=== PATIENT | female | born 1980 | race Caucasian/White ===

== ENCOUNTER 2022-04-24 13:01 | Emergency (ER) | payer OTHER, SELFPAY ==
[2022-04-24 13:01] VITALS: BP 144/90; PULSE 89; RESP 15; TEMP 36.4; O2SAT 97; BMI 54.7
--- NOTE | 2022-04-24 13:19 | DI.CT.S_ITS ---
PROCEDURE: CT FACIAL BONES WO CON INDICATIONS: Fall/jaw pain TECHNIQUE: Noncontrast 2.5 mm thick axial images acquired from the mandible through the frontal sinuses, with coronal and sagittal reformatting. For radiation dose reduction, the following was used: automated exposure control, adjustment of mA and/or kV according to patient size. COMPARISON: None. FINDINGS: Image quality: Excellent. Bones and teeth: Orbital castaneda are intact. Sinus castaneda show no fracture or deformity. Nasal bones and septum are intact. Visualized portions of the mandible demonstrate no fractures or subluxation. Zygomatic arches are intact. Pterygoid plates are intact. Visualized portions of the skull base and auditory canals are intact. Sinuses: Right maxillary sinus air-fluid level mucosal debris. Soft tissues: No edema, masses, or fluid collections. No enlarged lymph nodes. No soft tissue lacerations or debris. Mild soft tissue swelling/edema noted over the chin Vascular: Visualized vascular structures appear normal in the absence of contrast. Bony vascular foramina and canals are intact. IMPRESSION: No evidence of mandibular or facial bone fracture. Soft tissue swelling without fracture or foreign body Approved by: Noman Pino M.D. on 04/24/2022 at 12:57
--- NOTE | 2022-04-24 13:19 | ED_ITS ---
HPI - Fall General Chief Complaint: Fall Stated Complaint: fell and hit chin on pavement Time Seen by Provider: 04/24/22 13:12 Source: patient Mode of arrival: Ambulatory History of Present Illness HPI Narrative: Patient here with mother. Complains of jaw pain/chin pain, she fell because her son walked in front of her and caused her to trip and fall on the sidewalk. No loss of consciousness. Patient not on any blood thinners. Denies any other injuries. Has abrasion to the chin. Has difficulty opening and closing her jaw. Denies , does not want a test Patient is up-to-date with tetanus shot Related Data Home Medications Medication Instructions Recorded Confirmed naproxen sodium 220 mg tablet 220 mg PO PRN ##0 04/30/13 (Aleve) Allergies Allergy/AdvReac Type Severity Reaction Status Date / Time acetaminophen [From Vicodin] Allergy Verified 04/24/22 13:08 guaifenesin Allergy Verified 04/24/22 13:08 hydrocodone [From Vicodin] Allergy Verified 04/24/22 13:08 Penicillins Allergy Verified 04/24/22 13:08 steroid injection Allergy Uncoded 04/24/22 13:08 Review of Systems Review of Systems Narrative: GENERAL: Denies chills, fatigue, malaise, fever, sweats. HEENT: Denies sinus pain, ear pain, sore throat, positive oral pain RESPIRATORY: Denies dyspnea, cough CARDIOVASCULAR: Denies chest pain, palpitations GASTROINTESTINAL: Denies nausea, vomiting, abdominal pain : Denies dysuria, frequency, hematuria MUSCULOSKELETAL: denies muscle or bony pain SKIN: Denies rash, skin lesions, positive skin injury NEUROLOGIC: Denies weakness, numbness ROS Unobtainable: All systems reviewed & are unremarkable except as noted in HPI and below Patient History Social History Smoking Status: Unknown if ever smoked Smoking Status: Unknown if ever smoked alcohol intake frequency: holidays/special occasions only Substance Use Type: does not use Exam Narrative Exam Narrative: GENERAL: in no distress, not toxic not dyspneic HEAD: Normocephalic. EYES: Pupils equal round No scleral icterus. ENT: Mucous membranes moist. Abrasion at the skin of the chin. No laceration. Able to open her mouth but with pain. On closing her jaw she states does not feel it a lines the same. There is bruising at the gumline at the lower front teeth. No fracture of the teeth seen. NECK: Trachea midline. No midline tenderness or step-off. CARDIOVASCULAR: Regular rate and rhythm without murmurs RESPIRATORY: Clear to auscultation. Breath sounds equal bilaterally. No wheezes, rales, or rhonchi. GASTROINTESTINAL: Abdomen soft, non-tender NEURO: AOx4. SKIN: Warm and dry PSYCH: Not anxious, is cooperative Initial Vital Signs Initial Vital Signs: Vital Signs Temperature 97.6 F 04/24/22 13:01 Pulse Rate 89 04/24/22 13:01 Respiratory Rate 15 04/24/22 13:01 Blood Pressure 144/90 H 04/24/22 13:01 Pulse Oximetry 97 04/24/22 13:01 Oxygen Delivery Method 04/24/22 13:01 Course Course Course Narrative: No new issues during course of stay Orders Ordered: Discontinued Medications Bacitracin (Bacitracin Oint 0.9 Gm Pckt) 1 applic TOP NOW ONE Stop: 04/24/22 14:59 Last Admin: 04/24/22 15:08 Dose: 1 applic Documented By: KEON Reevaluation(s) Reevaluation #1: Reviewed results with patient. Exam and imaging otherwise reassuring. Appropriate for follow-up with Oral maxillofacial provider, informed her I will give her referral. She agrees with treatment plan. Return precautions reviewed with her. Pain controlled at time of discharge. Dietary recommendations reviewed with her for soft diet. And dental care. Time: 15:04 Vital Signs Vital signs: Vital Signs - 8 hr 04/24/22 13:01 Temperature 97.6 F Pulse Rate 89 Respiratory Rate 15 Blood Pressure 144/90 H Pulse Oximetry 97 Oxygen Delivery Method Room Air MDM - Fall Differential Diagnosis Differential diagnosis: Likely other (Jaw fracture jaw contusion/dental fracture/chin abrasion) Imaging Data ct facial bones: Radiologist's Impression: [address] [address] [address] Scan Report Signed Patient: Caitlin Lara MR#: [id number] : 1980 Acct:[id number] Age/Sex: 41 / F Date of Service: 04/24/22 Loc: ED Accession Number: [id number] ?? Procedure: CT facial bones wo con Ordering Provider: Tc Hook MD PROCEDURE:? CT FACIAL BONES WO CON ? INDICATIONS:? Fall/jaw pain ? TECHNIQUE:? Noncontrast 2.5 mm thick axial images acquired from the mandible through the frontal sinuses, with coronal and sagittal reformatting.? For radiation dose reduction, the following was used:? automated exposure control, adjustment of mA and/or kV according to patient size.? ? COMPARISON:? None. ? FINDINGS:? Image quality:? Excellent.? ? Bones and teeth:? Orbital castaneda are intact.? Sinus castaneda show no fracture or deformity.? Nasal bones and septum are intact.? Visualized portions of the mandible demonstrate no fractures or subluxation.? Zygomatic arches are intact.? Pterygoid plates are intact.? Visualized portions of the skull base and auditory canals are intact.? ? Sinuses:? Right maxillary sinus air-fluid level mucosal debris. ? Soft tissues:? No edema, masses, or fluid collections.? No enlarged lymph nodes.? No soft tissue lacerations or debris.? Mild soft tissue swelling/edema noted over the chin ? Vascular:? Visualized vascular structures appear normal in the absence of contrast.? Bony vascular foramina and canals are intact.? ? IMPRESSION:? ? No evidence of mandibular or facial bone fracture. ? Soft tissue swelling without fracture or foreign body ? ? Approved by: Noman Pino M.D. on 04/24/2022 at 12:57? [facility] Narrative Medical decision making narrative: Appropriate for discharge home. Exam and imaging otherwise reassuring. Referral for oral maxillofacial provider given. Not toxic at discharge. Pain is controlled at discharge. Return precautions reviewed with patient Discharge Plan Departure Patient Disposition: Home Clinical Impression: Contusion of gingiva attached to mandible, Abrasion of chin Instructions: DI for Contusion, DI for Abrasion Activity Restrictions/Additional Instructions: May continue ibuprofen for pain. Be sure to keep skin injury out of exposure from the sun. Clean chin daily with warm soap and water and apply thin layer of topical antibiotic. Recommend soft foods/genital/mesh potatoes/pasta for the next week until chewing improves. Call provided oral maxillofacial office on Wednesday for office recheck in a week. To rinse your teeth orally after each meal. Soft brushing can be done. Return if worse if any questions or concerns Prescriptions: No Action naproxen sodium [Aleve] 220 MG tablet 220 mg PO PRN Qty: 0 Referrals: Edin Ramirez, CARLITO [Physician] - Catalina Kauffman MD [Primary Care Provider] - Visit Report Forms: Patient Portal/API
[2022-04-24 15:00] VITALS: BP 140/80; PULSE 80; RESP 18; O2SAT 98
[2022-04-24] MEDS: BACITRACIN OINT 0.9 GM PCKT 1 APPLIC TOP (15:08)
== END 2022-04-24 15:16 | disposition home or self-care (01) ==
PROVIDERS: Emergency Provider Emergency Medicine; PCP Internal Medicine
DX: S00.532A Contusion of oral cavity, initial encounter (principal); S00.81XA Abrasion of other part of head, initial encounter; W01.0XXA Fall on same level from slipping, tripping and stumbling without subsequent striking against object, initial encounter
CPT/HCPCS: 70486; 99283

== ENCOUNTER 2023-09-28 19:34 | Emergency (ER) | payer OTHER, SELFPAY ==
[2023-09-28 19:41] VITALS: BP 144/84; PULSE 77; RESP 18; TEMP 37.1; O2SAT 100; BMI 53.9
--- NOTE | 2023-09-28 19:46 | DI.RAD.S_ITS ---
PROCEDURE: XR FOOT LT MIN 3V INDICATIONS: fall/pain TECHNIQUE: 3 views of the foot were acquired. COMPARISON: None. FINDINGS: Bones: No fractures or dislocations. No suspicious bony lesions. Well-defined plantar calcaneal enthesophyte is seen. Soft tissues: No tibiotalar joint effusion. Achilles tendon appears normal. IMPRESSION: No gross acute left foot fracture or dislocation. Plantar calcaneal enthesophyte. Dictated by: Neo Aguiar M.D. on 09/28/2023 at 21:30 Approved by: Neo Aguiar M.D. on 09/28/2023 at 21:31
--- NOTE | 2023-09-28 19:46 | DI.RAD.S_ITS ---
PROCEDURE: XR ANKLE LT MIN 3V INDICATIONS: fall/pain TECHNIQUE: 3 views of the ankle were acquired. COMPARISON: None. FINDINGS: Bones: Subtle calcification adjacent to tip of lateral malleolus is seen concerning for small avulsion injury in this area. No other fracture or dislocation.. Ankle mortise is normally aligned. No suspicious bony lesions. Well-defined plantar calcaneal enthesophyte is seen. Soft tissues: Diffuse ankle soft tissue swelling is noted. Small tibiotalar joint effusion. Achilles tendon appears normal. IMPRESSION: Finding is concerning for acute avulsion injury involving tip of lateral malleolus with ankle soft tissue swelling. Dictated by: Neo Aguiar M.D. on 09/28/2023 at 21:28 Approved by: Neo Aguiar M.D. on 09/28/2023 at 21:30
--- NOTE | 2023-09-28 19:46 | DI.RAD.S_ITS ---
PROCEDURE: XR KNEE LT 1TO2V INDICATIONS: fall/pain TECHNIQUE: 2 views of the knee were acquired. COMPARISON: None. FINDINGS: Bones: No fractures or dislocations. Moderate tricompartmental osteoarthritis is seen. No suspicious bony lesions. Soft tissues: Small to moderate suprapatellar joint effusion. No suspicious soft tissue calcifications. IMPRESSION: No acute left knee fracture or dislocation. Moderate tricompartmental osteoarthritis and small to moderate joint effusion. Dictated by: Neo Aguiar M.D. on 09/28/2023 at 21:31 Approved by: Neo Aguiar M.D. on 09/28/2023 at 21:32
--- NOTE | 2023-09-28 23:45 | PC.NURSE ---
recv'd to rm 13
--- NOTE | 2023-09-29 01:09 | ED_ITS ---
HPI - Extremity Injury (Lower) General Chief Complaint: Extremity Injury, Lower Stated Complaint: lt leg,ankle and knee pain Time Seen by Provider: 09/29/23 01:09 History of Present Illness HPI Narrative: 42-year-old woman with a history of spinal lumbar stenosis as well as cervical C3-4 fusion stumbled getting into her car today and injured the left ankle and knee. She ended up falling backward onto her back. She did not hit her head she was able to get up by herself. She has been having difficulty walking and bearing weight on the left extremity. Comes in for additional evaluation Related Data Home Medications Medication Instructions Recorded Confirmed naproxen sodium 220 mg tablet 220 mg PO PRN ##0 04/30/13 (Aleve) Previous Rx's Medication Instructions Recorded oxycodone-acetaminophen 5 mg-325 1 tab PO Q6H PRN pain #10 tabs 09/29/23 mg tablet Allergies Allergy/AdvReac Type Severity Reaction Status Date / Time acetaminophen [From Vicodin] Allergy Verified 04/24/22 13:08 guaifenesin Allergy Verified 04/24/22 13:08 hydrocodone [From Vicodin] Allergy Verified 04/24/22 13:08 Penicillins Allergy Verified 04/24/22 13:08 steroid injection Allergy Uncoded 04/24/22 13:08 Review of Systems Review of Systems Narrative: Pertinent positive and negative findings as per HPI Patient History Social History Smoking Status: Never smoker Smoking Status: Never smoker alcohol intake frequency: holidays/special occasions only Substance Use Type: does not use Exam Initial Vital Signs Initial Vital Signs: Vital Signs Temperature 98.8 F 09/28/23 19:41 Pulse Rate 77 09/28/23 19:41 Respiratory Rate 18 09/28/23 19:41 Blood Pressure 144/84 H 09/28/23 19:41 Pulse Oximetry 100 09/28/23 19:41 Oxygen Delivery Method Room Air 09/28/23 19:41 General: Alert appropriate difficulty with mobility secondary to pain, BMI of 54 Respiratory: Able to speak in full sentences, no obvious respiratory distress Skin: No obvious rashes, warm and dry Neurologic: Grossly intact no obvious asymmetries or abnormalities Psych: appropriate insight and affect, cooperative Extremity: She has some mild tenderness to her left knee but no obvious swelling or instability. No tenderness over the dorsum of the foot. She does have point tenderness over the lateral malleoli with some minor swelling. Course Orders Ordered: Discontinued Medications Naproxen (Naproxen 250 Mg Tablet) 500 mg PO NOW ONE Stop: 09/29/23 01:24 Last Admin: 09/29/23 01:32 Dose: 500 mg Documented By: DECLAN Oxycodone/Acetaminophen (Oxycodone/Acetaminophen 5/325 Tablet) 1 tab PO NOW ONE Stop: 09/29/23 01:24 Last Admin: 09/29/23 01:32 Dose: 1 tab Documented By: DECLAN Vital Signs Vital signs: Vital Signs - 8 hr 09/29/23 02:09 Pulse Rate 76 Respiratory Rate 18 Blood Pressure 140/80 Pulse Oximetry 97 MDM - Extremity Injury (Lower) MDM Narrative Medical decision making narrative: CC: Left knee and ankle pain Complicating co-morbidities: Prior lumbar and cervical spine issues Data collected from: patient Differential considered: Fractures versus sprains at foot ankle knee levels Exam documented above, pertinent findings include: Tenderness over the lateral malleolus. Area of concern for avulsion fracture. Imaging studies independently reviewed: X-ray knee no fractures, tricompartmental arthritis, joint effusion appreciated X-ray foot no foot fractures appreciated X-ray ankle likely avulsion fracture to the tip of the lateral malleolus. Treatments: Patient is placed in posterior short-leg splint. She is neurovascularly intact prior to the placement and post placement. The splint does offer additional stability as well as comfort. She has a 4 point cane with her and a walker to use at home needed. Discussion: 42-year-old woman with orthopedic problems at baseline typically takes Alleve twice a day. Fell backwards getting into her car injured her left ankle. No signs of near foot fractures. Possible avulsion fracture of the lateral malleolus. She is placed in a walking boot. She has given a dose of Naprosyn and a single Percocet this evening to help with the pain. We will give her outpatient prescription for 10 Percocet given the degree of pain she is showing in the emergency department simply moving in the bed to sitting to standing. We did discuss the side effect of constipation and she does have stool softeners at home. Asked her to follow-up with Dr. Aguiar with [facility] in about a week for definitive treatment of the either avulsion fracture or significant ankle sprain Discharge Plan Departure Patient Disposition: Home Clinical Impression: Fall Qualifiers: Encounter type: initial encounter Qualified Code(s): W19.XXXA - Unspecified fall, initial encounter Avulsion fracture of left ankle Qualifiers: Encounter type: initial encounter Fracture type: closed Qualified Code(s): S82.892A - Other fracture of left lower leg, initial encounter for closed fracture Instructions: DI for Ankle Fracture Activity Restrictions/Additional Instructions: Thank you for coming in today Your knee and foot x-rays are reassuring. There may be a small avulsion fracture, where the tendon pulse a small amount of the bone off, on the outside of her left ankle which is where he having the most pain. We have placed you in the walking boot for stability and pain control. You will need to follow up with [facility] within the week for definitive treatment of this very likely fracture. Please contact them at [phone] and explain that you are in the emergency department and need follow up for your ankle fracture Please continue to use the Alleve as you have been. You can add Tylenol to this. I have also given you a short prescription for Percocet for severe pain. I suspect that you are going to have quite a bit more pain over the next 24-48 hours after your fall. If you find that you are getting worse or develop any new symptoms, please feel free to return to the emergency department for further evaluation. Prescriptions: New oxycodone-acetaminophen 5-325 mg tablet 1 tab PO Q6H PRN (Reason: pain) Qty: 10 0RF No Action naproxen sodium [Aleve] 220 MG tablet 220 mg PO PRN Qty: 0 Referrals: Catalina Kauffman MD [Primary Care Provider] - Stand Alone Forms: Patient Portal/API
[2023-09-29] MEDS: OXYCODONE/ACETAMINOPHEN 5/325 TABLET 1 TAB PO (01:32)
[2023-09-29] MEDS: NAPROXEN 250 MG TABLET 500 MG PO (01:32)
[2023-09-29 02:09] VITALS: BP 140/80; PULSE 76; RESP 18; O2SAT 97
== END 2023-09-29 02:12 | disposition home or self-care (01) ==
PROVIDERS: Emergency Provider Emergency Medicine; PCP Internal Medicine
DX: S82.892A Other fracture of left lower leg, initial encounter for closed fracture (principal); W18.30XA Fall on same level, unspecified, initial encounter
CPT/HCPCS: 73560; 73610; 73630; 99283

== ENCOUNTER 2024-08-12 00:13 | Emergency (ER) | payer OTHER, SELFPAY ==
[2024-08-12] VITALS (12 sets, daily range): BP systolic 149–169; BP diastolic 75–93; PULSE 64–81; RESP 20; TEMP 36.4; O2SAT 95–100; BMI 56.0
--- NOTE | 2024-08-12 | DI.CT.S_ITS ---
PROCEDURE: CT PEL WO CON INDICATIONS: GLF, PAIN TECHNIQUE: Noncontrast 3 mm axial sections acquired through the bony pelvis, with coronal and sagittal reformatting. COMPARISON: [facility], CR, XR PELVIS 1 OR 2 VIEWS, 02/25/2023, 7:43. FINDINGS: Image quality: Diagnostic. Bones: Postsurgical changes of open reduction and internal fixation of subcapital right femoral neck fracture. No evidence to suggest hardware failure. There is continued visualization of the fracture line without definite bony fusion. No acute fracture seen. No suspicious osseous lesions. Lower lumbosacral spondylitic changes. Soft tissues: Visualized small bowel and colon appear unremarkable. Reproductive organs appear unremarkable. No pelvic adenopathy seen. No pathologic pelvic free fluid. IMPRESSION: There are postsurgical changes of prior ORIF of the right femoral neck with persistent visualization of the fracture line and age-indeterminate fracture fragment anterior to the femoral head neck junction. Findings are suspicious for incomplete osseous fusion versus potential acute on chronic fracture of the right femoral neck. Surgical hardware appears intact. Dictated by: Andrew Davis M.D. on 08/12/2024 at 1:21 Approved by: Andrew Davis M.D. on 08/12/2024 at 1:28
--- NOTE | 2024-08-12 00:23 | DI.RAD.S_ITS ---
PROCEDURE: XR HIP W PEL IF DONE RT 2V INDICATIONS: GLF, HIP PAIN TECHNIQUE: AP pelvis with lateral view(s) of the right hip(s). COMPARISON: None. FINDINGS: Bones: Postsurgical changes of the right hip show intact hardware without surrounding lucency. Mild deformity of the femoral neck is present. Pelvic ring appears intact. No suspicious bony lesions. Soft tissues: The visualized bowel gas pattern is normal. No suspicious soft tissue calcifications. IMPRESSION: Postsurgical changes without evidence of acute abnormality. Dictated by: Rosalee Carrasquillo M.D. on 08/12/2024 at 8:44 Approved by: Rosalee Carrasquillo M.D. on 08/12/2024 at 8:48
--- NOTE | 2024-08-12 00:23 | DI.CT.S_ITS ---
PROCEDURE: CT LUMBAR SPINE WO CON INDICATIONS: GLF, PAIN TECHNIQUE: Noncontrast 3 mm thick sections acquired from the T12 level to the sacrum. Sagittal and coronal reformats were constructed. For radiation dose reduction, the following was used: automated exposure control. COMPARISON: [facility], CR, XR LUMBAR SPINE 2 OR 3 VIEWS, 11/30/2023, 9:55. FINDINGS: Image quality: Diagnostic Bones: There is stable bony alignment with persistent mild grade 1 anterolisthesis of L4 relative to L3 and L5. No acute vertebral body compression fractures. No suspicious lytic or blastic bony lesions. No pars defects. Multilevel lumbar spondylosis with associated facet arthropathy. There is disc space loss, degenerative endplate changes, and endplate osteophyte formation. There is severe bilateral neuroforaminal stenosis at L5-S1. There is also moderate spinal canal stenosis at this level. There is also moderate spinal canal stenosis at L4-5. Soft tissues: No retroperitoneal masses or hematomas. Visualized aorta is normal in caliber. No hydronephrosis or obstructive uropathy. Ureters are normal in course and caliber. Unremarkable appearance of the reproductive organs. No evidence for bowel obstruction. No pelvic adenopathy. IMPRESSION: Lumbar spine without acute osseous abnormalities. No acute compression fractures. Moderate multilevel lumbar spondylosis. Dictated by: Andrew Davis M.D. on 08/12/2024 at 1:28 Approved by: Andrew Davis M.D. on 08/12/2024 at 1:35
--- NOTE | 2024-08-12 00:27 | ED_ITS ---
HPI - Fall General Chief Complaint: Fall Stated Complaint: GLF Time Seen by Provider: 08/12/24 00:17 History of Present Illness HPI Narrative: 43-year-old female with history of psoriatic arthritis, frequent falls presents for evaluation of right hip pain and lumbar back pain after a ground level fall that occurred just prior to arrival. Patient states that she has at least 1 fall per month. In February of 2024 she had repair of femoral neck fracture performed at [place] with Dr. Hunt. She states that she has fallen at least 3 times since then, including tonight. She states that her falls have previously been attributed to lumbar stenosis. She has seen orthopedics and neurology for her frequent falls and she states that this is the best explanation for her current symptoms. Tonight patient was going to bed when she got caught up in her walker and her legs gave out. She fell onto her R hip and onto her walker. EMS gave 100mcg fentanyl en route. Patient concerned that she may have either repeatedly broken her hip or has misaligned hardware. Related Data Home Medications Medication Instructions Recorded Confirmed naproxen sodium 220 mg tablet 220 mg PO PRN ##0 04/30/13 11/09/23 (Aleve) difluprednate 0.05 % eye drops 1 drp EYE-RIGHT TID 11/09/23 11/09/23 duloxetine 20 mg capsule,delayed 20 mg PO BID 11/09/23 11/09/23 release (Cymbalta) fexofenadine 180 mg tablet 180 mg PO DAILY 11/09/23 11/09/23 pregabalin 150 mg capsule 150 mg PO BID 11/09/23 11/09/23 Allergies Allergy/AdvReac Type Severity Reaction Status Date / Time codeine Allergy Mild Hives Verified 11/09/23 13:41 acetaminophen [From Vicodin] Allergy Verified 11/09/23 13:41 guaifenesin Allergy Verified 11/09/23 13:41 hydrocodone [From Vicodin] Allergy Verified 11/09/23 13:41 Penicillins Allergy Verified 11/09/23 13:41 steroid injection Allergy Uncoded 11/09/23 13:41 Raw Tomatoes, Oranges, AdvReac Mild Rash Uncoded 11/09/23 13:41 Strawberries Patient History Medical History Low back pain Adverse effect of corticosteroids Lumbar radiculopathy Lumbar degenerative disc disease Morbid obesity Lumbar spondylosis Social History Smoking Status: Never smoker Smoking Status: Never smoker alcohol intake frequency: holidays/special occasions only Exam Initial Vital Signs Initial Vital Signs: Vital Signs Pulse Rate 67 08/12/24 00:18 Blood Pressure 167/93 H 08/12/24 00:18 Pulse Oximetry 99 08/12/24 00:18 Const: Awake, alert, no acute distress, morbidly obese Cardiac: regular rate, regular rhythm RESP: unlabored, conversational without dyspnea GI: Soft, nontender, nondistended, no rebound, no guarding MSK: Generalized tenderness along right hip. Possible shortening vs general habitus of RLE. Palpable DP pulses Skin: Warm, Dry, intact, no rashes Neuro: AO x3, CN II-XII grossly intact, moves all extremities Course Orders Ordered: ED Orders 08/12/24 CT pelvis wo con Stat 08/12/24 00:23 CT lumbar spine wo con Stat XR hip w pel if done RT 2V Stat 08/12/24 00:35 CBC Auto Diff [Complete Blood Count AUTO DIFF] Stat CMP [Comprehensive Metabolic Panel] Stat 08/12/24 02:05 Consult to Occupational Therapy Evaluate & Treat Consult to Physical Therapy Evaluate & Treat Discontinued Medications Morphine Sulfate (Morphine 4 Mg/Ml Inj) 4 mg IV NOW ONE Stop: 08/12/24 01:34 Last Admin: 08/12/24 01:38 Dose: 4 mg Documented By: RENZO Vital Signs Vital signs: Vital Signs - 8 hr 08/12/24 00:18 08/12/24 00:18 08/12/24 00:20 Temperature 97.5 F L Pulse Rate 67 66 Respiratory Rate 20 Blood Pressure 167/93 H 167/93 H Pulse Oximetry 99 99 Oxygen Delivery Method Room Air 08/12/24 00:30 08/12/24 01:11 Temperature Pulse Rate 66 74 Respiratory Rate Blood Pressure Pulse Oximetry 96 98 Oxygen Delivery Method MDM - Fall Differential Diagnosis Differential diagnosis: Likely compression fracture, concussion with loss of consciousness and concussion without loss of consciousness Lab Data 08/12/24 00:35 08/12/24 00:35 Labs: Lab Results 08/12/24 Range/Units 00:35 WBC 7.2 (4.5-11.0) X10^3/uL RBC 4.57 (4.0-5.2) X10^6/uL Hgb 13.3 (12.0-16.0) g/dL Hct 39.7 (36-46) % MCV 87.0 (80-100) fL MCH 29.2 (26-34) PG MCHC 33.6 (30-36) % RDW 14.6 (11.6-14.8) % Plt Count 205 (150-400) X10^3/uL Neut % (Auto) 55.4 (50-75) % Lymph % (Auto) 36.5 (25-40) % Preston % (Auto) 4.7 (3-14) % Eos % (Auto) 2.7 (2-4) % Baso % (Auto) 0.7 (0-2) % Neut # (Auto) 4000 (0944-7764) /uL Lymph # (Auto) 2600 (3038-3126) /uL Preston # (Auto) 300 (0-900) /uL Eos # (Auto) 200 (0-450) /uL Baso # (Auto) 0 (0-100) /uL Sodium 139 (137-145) mmol/L Potassium 4.0 (3.4-5.1) mmol/L Chloride 106 (98-107) mmol/L Carbon Dioxide 29 (22-32) mmol/L BUN 20 H (7-17) mg/dL Creatinine 0.69 (0.52-1.04) mg/dL Estimated GFR > 60 (>60) mL/min BUN/Creatinine Ratio 29.0 H (6-22) Glucose 99 (70-100) mg/dL Calcium 9.5 (8.4-10.2) mg/dL Total Bilirubin 0.9 (0.2-1.3) mg/dL AST 32 (14-36) IU/L ALT 33 (<35) IU/L Alkaline Phosphatase 88 (38-126) U/L Total Protein 7.2 (6.3-8.2) g/dL Albumin 4.3 (3.5-5.0) g/dL Globulin 2.9 (1.7-4.1) g/dL Albumin/Globulin Ratio 1.5 (1.0-2.8) Imaging Data CT scan - abdomen/pelvis: Radiologist's Impression: PROCEDURE: CT PEL WO CON INDICATIONS: GLF, PAIN TECHNIQUE: Noncontrast 3 mm axial sections acquired through the bony pelvis, with coronal and sagittal reformatting. COMPARISON: [facility], CR, XR PELVIS 1 OR 2 VIEWS, 02/25/2023, 7:43. FINDINGS: Image quality: Diagnostic. Bones: Postsurgical changes of open reduction and internal fixation of subcapital right femoral neck fracture. No evidence to suggest hardware failure. There is continued visualization of the fracture line without definite bony fusion. No acute fracture seen. No suspicious osseous lesions. Lower lumbosacral spondylitic changes. Soft tissues: Visualized small bowel and colon appear unremarkable. Reproductive organs appear unremarkable. No pelvic adenopathy seen. No pathologic pelvic free fluid. IMPRESSION: There are postsurgical changes of prior ORIF of the right femoral neck with persistent visualization of the fracture line and age-indeterminate fracture fragment anterior to the femoral head neck junction. Findings are suspicious for incomplete osseous fusion versus potential acute on chronic fracture of the right femoral neck. Surgical hardware appears intact. Dictated by: Andrew Davis M.D. on 08/12/2024 at 1:21 Approved by: Andrew Davis M.D. on 08/12/2024 at 1:28 MDM Narrative Medical decision making narrative: Ground level fall with right hip pain, has previous femoral neck fracture that was repaired at [place]. Neurovascularly intact, she was able to adjust herself in the bed. Unable to tell if patient has shortened hip or if this is related to habitus. CT imaging ordered for assessment. CT pelvis reviewed. There are postsurgical changes of ORIF, consistent with the patient's given history. Findings of incomplete osseous fusion versus acute on chronic fracture of the right femoral neck noted. Case discussed with Dr. Heath of Orthopedic surgery, who reviewed the images. He requested a plain film of the pelvis, however there are no findings that would indicate need for operative management or inpatient stay and patient should follow up on an outpatient basis with her surgeon. Imaging findings discussed with patient and family member at bedside. They state that they have specialized equipment, a hospital bed, in home physical therapy, and orthopedic follow up that they already have in place. She also has oxycodone at home that she has been prescribed for pain at home and she has plenty of these medications already. She states that she will call for thing Wednesday morning for a follow up appointment with her orthopedic surgeon. Discharge Plan Departure Patient Disposition: Home Clinical Impression: Acute right hip pain, Ground-level fall Instructions: How to Prevent Falls Activity Restrictions/Additional Instructions: Your x-rays today showed that your hardware is in the correct position. There is no definitive fracture that we can see. Our orthopedic surgeon reviewed the images and stated that there was nothing that needed to be operated on at this time. Continue to follow up with your orthopedic team at [place]. Do physical therapy and take your prescribed pain medications as directed. If you have any new or worsening concerns please return to the emergency department for repeat evaluation Prescriptions: No Action naproxen sodium [Aleve] 220 MG tablet 220 mg PO PRN Qty: 0 pregabalin 150 mg capsule 150 mg PO BID difluprednate 0.05 % drops 1 drp EYE-RIGHT TID fexofenadine 180 mg tablet 180 mg PO DAILY duloxetine [Cymbalta] 20 mg capsule,delayed release(DR/EC) 20 mg PO BID Referrals: Jazmin Kauffman PA-C [Primary Care Provider] - Stand Alone Forms: Patient Portal/API/Survey
[2024-08-12 00:43] LABS: Add Manual Diff / Slide Review NO; Basophils Absolute Auto 0 /uL (0-100); Basophils Percent Auto 0.7 % (0-2); Eosinophils Absolute Auto 200 /uL (0-450); Eosinophils Percent Auto 2.7 % (2-4); Hematocrit 39.7 % (36-46); Hemoglobin 13.3 g/dL (12.0-16.0); Lymphocytes Absolute Auto 2600 /uL (1100-4500); Lymphocytes Percent Auto 36.5 % (25-40); Mean Corpuscular HGB Conc 33.6 % (30-36); Mean Corpuscular Hemoglobin 29.2 PG (26-34); Monocytes Absolute Auto 300 /uL (0-900); Monocytes Percent Auto 4.7 % (3-14); Neutrophils Absolute Auto 4000 /uL (1500-7000); Neutrophils Percent Auto 55.4 % (50-75); Platelet Count 205 X10^3/uL (150-400); Red Blood Cell Count 4.57 X10^6/uL (4.0-5.2); Red Cell Distribution Width 14.6 % (11.6-14.8); White Blood Cell Count 7.2 X10^3/uL (4.5-11.0)
[2024-08-12 00:54] LABS: Alanine Aminotransferase 33 IU/L (<35); Albumin 4.3 g/dL (3.5-5.0); Albumin Globulin Ratio 1.5 (1.0-2.8); Alkaline Phosphatase 88 U/L (38-126); Aspartate Aminotransferase 32 IU/L (14-36); Bilirubin Total 0.9 mg/dL (0.2-1.3); Blood Urea Nitrogen 20 mg/dL (7-17); Calcium 9.5 mg/dL (8.4-10.2); Carbon Dioxide 29 mmol/L (22-32); Chloride 106 mmol/L (98-107); Estimated Glomerular Filt Rate > 60 mL/min (>60); Globulin 2.9 g/dL (1.7-4.1); Glucose 99 mg/dL (70-100); HEMOLYSIS < 15 (0-50); Sodium 139 mmol/L (137-145); Total Protein 7.2 g/dL (6.3-8.2)
[2024-08-12] MEDS: MORPHINE 4 MG/ML INJ IV (01:38)
== END 2024-08-12 03:26 | disposition home or self-care (01) ==
PROVIDERS: Emergency Provider Emergency Medicine; PCP Physician Assistant Medical
DX: M25.551 Pain in right hip (principal); M54.50 Low back pain, unspecified; R29.6 Repeated falls; W18.30XA Fall on same level, unspecified, initial encounter
CPT/HCPCS: 36415; 72131; 72192; 73502; 80053; 85025; 96374; 99284; J2270